=== PATIENT | female | born 1970 | race Caucasian/White ===

== ENCOUNTER 2021-04-28 21:43 | Emergency (ER) | payer OTHER ==
[2021-04-29] MEDS ORDERED: ATARAX25 MG PO (01:19)
[2021-04-29] MEDS ORDERED: PEPCID AC20 MG PO (01:19)
[2021-04-29] MEDS ORDERED: PREDNISONE 10MG10 MG PO (01:19)
== END 2021-04-29 01:35 | disposition home or self-care (01) ==
LOC: FER 21:43
DX: T78.3XXA Angioneurotic edema, initial encounter (principal); K13.0 Diseases of lips; T46.4X5A Adverse effect of angiotensin-converting-enzyme inhibitors, initial encounter; I10 Essential (primary) hypertension; Z79.899 Other long term (current) drug therapy
CPT/HCPCS: J1200; J2930; J7030